=== PATIENT | male | born 1965 | race African-American/Black ===

== ENCOUNTER 2018-10-15 10:38 | Inpatient (IN) | payer SELFPAY ==
[~2018-10-15] VITALS: Ht 177.8 cm; Wt 91.4 kg
[~2018-10-15 10:38] MED LIST: AMLO-512 PO; CARV25 PO; CLON.2 PO; HYDR-2924 PO; LABE200T6 PO; NIFE90TA38 PO; PHOSLOC PO; SPIR25 PO
[2018-10-15 11:58] LABS: BASOPHILS % (AUTO) 0.4 % (0.0-2.0); EOSINOPHILS % (AUTO) 0.5 % (1.0-6.0); HEMOGLOBIN 11.5 g/dL (13.5-17.5); LYMPHOCYTES # (AUTO) 0.7 K/uL (1.0-4.8); LYMPHOCYTES % (AUTO) 4.8 % (22.0-44.0); MEAN CORPUSCULAR HEMOGLOBIN 27.3 pg (26.0-34.0); MEAN CORPUSCULAR HGB CONC 32.9 G/dL (31.0-37.0); MEAN CORPUSCULAR VOLUME 83 fL (80-100); MONOCYTES # (AUTO) 1.1 K/uL (0.1-1.0); MONOCYTES % (AUTO) 7.5 % (2.0-9.0); NEUTROPHILS # (AUTO) 12.1 K/uL (1.8-7.7); NEUTROPHILS % (AUTO) 86.8 % (40.0-70.0); PLATELET COUNT (AUTO) 349 K/uL (150-450); RED CELL DISTRIBUTION WIDTH 14.2 % (11.5-14.5)
[2018-10-15 12:07] LABS: CALCIUM, TOTAL 9.7 mg/dL (8.8-10.5); CREATININE 4.42 mg/dL (0.60-1.30)
[2018-10-15 12:08] LABS: PROTHROMBIN TIME 10.8 SEC (9.4-11.6)
[2018-10-15 12:12] LABS: BILIRUBIN,TOTAL 0.3 mg/dL (0.1-1.0); TOTAL PROTEIN, SERUM 8.6 g/dL (6.4-8.2)
[2018-10-15 12:16] LABS: APPEARANCE,URINE CLOUDY (CLEAR); BILIRUBIN,URINE NEGATIVE (NEGATIVE); GLUCOSE, URINE (UA) NEGATIVE (NEGATIVE); KETONES,URINE NEGATIVE (NEGATIVE); LEUKOCYTE ESTERASE ,URINE MODERATE (NEGATIVE); NITRATE,URINE POSITIVE (NEGATIVE); OCCULT BLOOD,URINE NEGATIVE (NEGATIVE); PROTEIN,URINE SEE CONFIRM (NEGATIVE); UROBILINOGEN,URINE 0.2 mg/dL (<=1.0)
[2018-10-15] MEDS ORDERED: CefTRIAXone 1 GM/DEXTROSE 50 ML IV ONE (12:30)
[2018-10-15] MEDS ORDERED: SODIUM CHLORIDE 0.9% 1,000 ML IV ONE ×2 (12:30→13:15)
[2018-10-15 12:31] LABS: BACTERIA,URINE Many /HPF (None Seen); RBC,URINE 0-2 /HPF (0-2); SULFOSALICYLIC ACID,URINE 2+ (Negative); WBC,URINE 26-50 /HPF (0-5)
[2018-10-15 12:32] LABS: AMPHET/METH SCREEN,URINE NEGATIVE (NEGATIVE); BARBITURATE SCREEN, URINE NEGATIVE (NEGATIVE); BENZODIAZEPINES SCREEN,URINE NEGATIVE (NEGATIVE); CANNABINOID SCREEN,URINE NEGATIVE (NEGATIVE); COCAINE SCREEN,URINE NEGATIVE (NEGATIVE); METHADONE SCREEN, URINE NEGATIVE (NEGATIVE); OPIATE SCREEN,URINE NEGATIVE (NEGATIVE); PHENCYCLIDINE SCREEN,URINE NEGATIVE (NEGATIVE)
[2018-10-15] MEDS ORDERED: ACETAMINOPHEN 325 MG TABLET PO PRN ×2 (14:30→21:30)
[2018-10-15] MEDS ORDERED: 0.9% SODIUM CHLORIDE 10 ML SYRINGE IVP PRN (14:30)
[2018-10-15 15:15] VITALS: BP 160/96
[2018-10-15 19:00] VITALS: BP 132/97
[2018-10-15] MEDS ORDERED: -PHARMACY VACCINE NOTE- MISC ONE (19:45)
[2018-10-15] MEDS ORDERED: SODIUM CHLORIDE 0.45% 1,000 ML IV SCH (21:30)
[2018-10-15] MEDS ORDERED: HYDROCODONE/ACETAMINOPHEN 5-325 MG TABLET PO PRN (21:30)
[2018-10-15] MEDS ORDERED: OxyCODONE HCL/ACETAMINOPHEN 5-325 MG TABLET PO PRN (21:30)
[2018-10-15] MEDS: PIPERACILLIN/TAZO 3.375 GM/D5W 50 ML IV SCH (22:17)
[2018-10-15 23:48] VITALS: BP 160/97
[2018-10-16 04:00] VITALS: BP 143/92
[2018-10-16] MEDS: PIPERACILLIN/TAZO 3.375 GM/D5W 50 ML IV SCH ×3 (06:08→21:36)
[2018-10-16 06:34] LABS: BASOPHILS % (AUTO) 0.2 % (0.0-2.0); EOSINOPHILS % (AUTO) 1.4 % (1.0-6.0); HEMATOCRIT 32.4 % (41-53); HEMOGLOBIN 11.2 g/dL (13.5-17.5); LYMPHOCYTES # (AUTO) 0.9 K/uL (1.0-4.8); LYMPHOCYTES % (AUTO) 8.7 % (22.0-44.0); MEAN CORPUSCULAR HEMOGLOBIN 28.1 pg (26.0-34.0); MEAN CORPUSCULAR HGB CONC 34.4 G/dL (31.0-37.0); MEAN CORPUSCULAR VOLUME 82 fL (80-100); MONOCYTES # (AUTO) 1.2 K/uL (0.1-1.0); MONOCYTES % (AUTO) 11.5 % (2.0-9.0); NEUTROPHILS % (AUTO) 78.2 % (40.0-70.0); PLATELET COUNT (AUTO) 351 K/uL (150-450); RED BLOOD CELL COUNT(AUTO) 3.97 MIL/uL (4.50-5.90); RED CELL DISTRIBUTION WIDTH 14.2 % (11.5-14.5)
[2018-10-16 06:46] LABS: ALBUMIN 2.8 g/dL (3.4-5.0); BILIRUBIN,TOTAL 0.3 mg/dL (0.1-1.0); CHOL/HDL RATIO 5.6 (4.2-7.3); CREATININE 3.88 mg/dL (0.60-1.30); MAGNESIUM 2.3 mg/dL (1.80-2.40); POTASSIUM 4.8 mmol/L (3.5-5.1); TOTAL PROTEIN, SERUM 7.8 g/dL (6.4-8.2)
[2018-10-16 07:20] VITALS: BP 155/103
[2018-10-16 07:32] LABS: PHOSPHORUS 4.4 mg/dL (2.5-4.9); THYROID STIMULATING HORMONE 1.67 uIU/mL (0.36-3.74)
[2018-10-16] MEDS: AmLODIPine BESYLATE 10 MG TABLET PO SCH (08:16)
[2018-10-16] MEDS: HydrALAZINE HCL 50 MG TABLET PO SCH ×3 (08:16→19:54)
[2018-10-16] MEDS: CloNIDine HCL 0.2 MG TABLET PO SCH ×3 (08:16→19:54)
[2018-10-16] MEDS: NIFEdipine 90 MG ER TABLET PO SCH (08:16)
[2018-10-16] MEDS: CARVEDILOL 25 MG TABLET PO SCH ×2 (08:16→19:54)
[2018-10-16] MEDS: LABETALOL HCL 200 MG TABLET PO SCH ×2 (08:16→21:36)
[2018-10-16] MEDS: FAMOTIDINE 20 MG TABLET PO SCH (08:17)
[2018-10-16] MEDS: CALCIUM ACETATE 667 MG CAPSULE PO SCH ×2 (08:17→12:25)
[2018-10-16 11:40] VITALS: BP 128/83
[2018-10-16 15:00] VITALS: BP 125/95
[2018-10-16 19:26] VITALS: BP 136/81
[2018-10-16 20:06] LABS: CREATININE,URINE RANDOM 56.1 mg/dL (30.0-125.0)
[2018-10-16] MEDS ORDERED: SODIUM CHLORIDE 0.9% 250 ML IV ONE (23:05)
[2018-10-16 23:39] VITALS: BP 133/88
[2018-10-17 04:11] VITALS: BP 136/76
[2018-10-17] MEDS: PIPERACILLIN/TAZO 3.375 GM/D5W 50 ML IV SCH ×3 (05:43→21:05)
[2018-10-17 06:34] LABS: BASOPHILS % (AUTO) 0.4 % (0.0-2.0); EOSINOPHILS % (AUTO) 1.6 % (1.0-6.0); HEMATOCRIT 33.3 % (41-53); LYMPHOCYTES # (AUTO) 0.8 K/uL (1.0-4.8); LYMPHOCYTES % (AUTO) 8.1 % (22.0-44.0); MEAN CORPUSCULAR HEMOGLOBIN 27.6 pg (26.0-34.0); MEAN CORPUSCULAR HGB CONC 33.2 G/dL (31.0-37.0); MEAN CORPUSCULAR VOLUME 83 fL (80-100); MONOCYTES # (AUTO) 1.2 K/uL (0.1-1.0); MONOCYTES % (AUTO) 11.6 % (2.0-9.0); NEUTROPHILS # (AUTO) 8.2 K/uL (1.8-7.7); NEUTROPHILS % (AUTO) 78.3 % (40.0-70.0); PLATELET COUNT (AUTO) 378 K/uL (150-450); RED CELL DISTRIBUTION WIDTH 14.4 % (11.5-14.5)
[2018-10-17 06:46] LABS: CALCIUM, TOTAL 9.1 mg/dL (8.8-10.5); CREATININE 3.76 mg/dL (0.60-1.30); POTASSIUM 5.2 mmol/L (3.5-5.1)
[2018-10-17 07:15] VITALS: BP 128/81
[2018-10-17 07:36] LABS: MAGNESIUM 2.4 mg/dL (1.80-2.40); PHOSPHORUS 4.1 mg/dL (2.5-4.9)
[2018-10-17] MEDS ORDERED: SODIUM POLYSTYRENE SULFONATE 15 GM/60 ML SUSPENSION BOTTLE PO ONE (10:00)
[2018-10-17] MEDS: FAMOTIDINE 20 MG TABLET PO SCH (10:09)
[2018-10-17] MEDS: CloNIDine HCL 0.2 MG TABLET PO SCH ×3 (10:09→20:34)
[2018-10-17] MEDS: NIFEdipine 90 MG ER TABLET PO SCH (10:09)
[2018-10-17] MEDS: CARVEDILOL 25 MG TABLET PO SCH ×2 (10:09→20:34)
[2018-10-17] MEDS: HydrALAZINE HCL 50 MG TABLET PO SCH ×3 (10:09→20:36)
[2018-10-17] MEDS: LABETALOL HCL 200 MG TABLET PO SCH ×2 (10:09→20:34)
[2018-10-17] MEDS: AmLODIPine BESYLATE 10 MG TABLET PO SCH (10:09)
[2018-10-17 11:27] VITALS: BP 136/77
[2018-10-17 15:48] VITALS: BP 133/91
[2018-10-17 20:01] VITALS: BP 136/82
[2018-10-17 23:12] VITALS: BP 126/78
[2018-10-18 04:00] VITALS: BP 142/82
[2018-10-18] MEDS: PIPERACILLIN/TAZO 3.375 GM/D5W 50 ML IV SCH ×2 (05:28→14:13)
[2018-10-18 06:37] LABS: BASOPHILS % (AUTO) 0.4 % (0.0-2.0); EOSINOPHILS % (AUTO) 2.8 % (1.0-6.0); HEMATOCRIT 32.6 % (41-53); HEMOGLOBIN 10.9 g/dL (13.5-17.5); LYMPHOCYTES % (AUTO) 11.9 % (22.0-44.0); MEAN CORPUSCULAR HEMOGLOBIN 28.1 pg (26.0-34.0); MEAN CORPUSCULAR HGB CONC 33.5 G/dL (31.0-37.0); MEAN CORPUSCULAR VOLUME 84 fL (80-100); MONOCYTES # (AUTO) 0.9 K/uL (0.1-1.0); MONOCYTES % (AUTO) 10.3 % (2.0-9.0); NEUTROPHILS # (AUTO) 6.5 K/uL (1.8-7.7); NEUTROPHILS % (AUTO) 74.6 % (40.0-70.0); PLATELET COUNT (AUTO) 407 K/uL (150-450); RED BLOOD CELL COUNT(AUTO) 3.88 MIL/uL (4.50-5.90); RED CELL DISTRIBUTION WIDTH 14.4 % (11.5-14.5)
[2018-10-18 06:57] LABS: CALCIUM, TOTAL 9.4 mg/dL (8.8-10.5); CREATININE 3.98 mg/dL (0.60-1.30); MAGNESIUM 2.5 mg/dL (1.80-2.40); PHOSPHORUS 5.4 mg/dL (2.5-4.9); POTASSIUM 4.4 mmol/L (3.5-5.1)
[2018-10-18 08:27] VITALS: BP 134/76
[2018-10-18] MEDS: LABETALOL HCL 200 MG TABLET PO SCH (08:38)
[2018-10-18] MEDS: HydrALAZINE HCL 50 MG TABLET PO SCH (08:38)
[2018-10-18] MEDS: FAMOTIDINE 20 MG TABLET PO SCH (08:38)
[2018-10-18] MEDS: NIFEdipine 90 MG ER TABLET PO SCH (08:39)
[2018-10-18] MEDS: AmLODIPine BESYLATE 10 MG TABLET PO SCH (08:39)
[2018-10-18] MEDS: CloNIDine HCL 0.2 MG TABLET PO SCH (08:39)
[2018-10-18] MEDS: CARVEDILOL 25 MG TABLET PO SCH (08:39)
[2018-10-18 11:36] VITALS: BP 127/80
[2018-10-18] MEDS ORDERED: CIPR500S5 PO (14:37)
[2018-10-18 15:10] VITALS: BP 133/86
== END 2018-10-18 15:35 | disposition home or self-care (01) | DRG 727 ==
LOC: EMS 10:39 → 5N 14:43
PROVIDERS: ADMIT Internal Medicine; ATTEND Internal Medicine
DX: N45.3 Epididymo-orchitis (principal); N17.1 Acute kidney failure with acute cortical necrosis; R65.10 Systemic inflammatory response syndrome (SIRS) of non-infectious origin without acute organ dysfunction; N18.4 Chronic kidney disease, stage 4 (severe); N39.0 Urinary tract infection, site not specified; I16.1 Hypertensive emergency; I12.9 Hypertensive chronic kidney disease with stage 1 through stage 4 chronic kidney disease, or unspecified chronic kidney disease; E87.5 Hyperkalemia; D72.829 Elevated white blood cell count, unspecified; D63.1 Anemia in chronic kidney disease; R74.0 Nonspecific elevation of levels of transaminase and lactic acid dehydrogenase [LDH]; R80.9 Proteinuria, unspecified; N40.0 Benign prostatic hyperplasia without lower urinary tract symptoms; N50.89 Other specified disorders of the male genital organs; Z82.49 Family history of ischemic heart disease and other diseases of the circulatory system
CPT/HCPCS: 76770; 76870; 82570; 83735; 84100; 84156; 84300; 84443; 84540; 87086; 96365; G0378; J0696; J2543; J7030; J7050

== ENCOUNTER 2019-04-07 10:10 | Inpatient (IN) | payer MEDICAID, OTHER ==
[~2019-04-07] VITALS: Ht 177.8 cm; Wt 90.7 kg
[~2019-04-07 10:10] MED LIST changes: -AMLO-512 PO; +AMLO10TA7 PO; +CIPR500S5 PO
[2019-04-07] MEDS ORDERED: HydrALAZINE HCL 20 MG/ML VIAL IVP ONE (11:15)
[2019-04-07 11:24] LABS: BASOPHILS % (AUTO) 0.6 % (0.0-2.0); HEMOGLOBIN 11.8 g/dL (13.5-17.5); MONOCYTES # (AUTO) 0.5 K/uL (0.1-1.0)
[2019-04-07 11:27] LABS: EOSINOPHILS % (AUTO) 1.9 % (1.0-6.0); LYMPHOCYTES # (AUTO) 0.5 K/uL (1.0-4.8); LYMPHOCYTES % (AUTO) 8.2 % (22.0-44.0); MEAN CORPUSCULAR HEMOGLOBIN 27.3 pg (26.0-34.0); MEAN CORPUSCULAR HGB CONC 33.6 G/dL (31.0-37.0); MEAN CORPUSCULAR VOLUME 81 fL (80-100); MONOCYTES % (AUTO) 8.9 % (2.0-9.0); NEUTROPHILS # (AUTO) 4.8 K/uL (1.8-7.7); NEUTROPHILS % (AUTO) 80.4 % (40.0-70.0); PLATELET COUNT (AUTO) 176 K/uL (150-450); RED BLOOD CELL COUNT(AUTO) 4.31 MIL/uL (4.50-5.90); RED CELL DISTRIBUTION WIDTH 15.3 % (11.5-14.5)
[2019-04-07 11:46] LABS: ALBUMIN 3.1 g/dL (3.4-5.0); BILIRUBIN,TOTAL 0.6 mg/dL (0.1-1.0); CALCIUM, TOTAL 9.2 mg/dL (8.8-10.5); CREATININE 12.91 mg/dL (0.60-1.30); TOTAL PROTEIN, SERUM 7.5 g/dL (6.4-8.2)
[2019-04-07 11:47] LABS: POTASSIUM 2.6 mmol/L (3.5-5.1)
[2019-04-07] MEDS ORDERED: ASPIRIN 325 MG TABLET PO ONE (12:00)
[2019-04-07] MEDS ORDERED: POTASSIUM CHL 10 MEQ/WATER 50 ML IV PRN (12:00)
[2019-04-07] MEDS ORDERED: POTASSIUM CHLORIDE 20 MEQ ER TABLET PO PRN (12:00)
[2019-04-07] MEDS ORDERED: FUROSEMIDE 40 MG/4 ML VIAL IVP ONE (12:30)
[2019-04-07] MEDS ORDERED: ESMOLOL HCL 2500 MG/NACL 250 ML IV PRN ×2 (12:45→16:12)
[2019-04-07] MEDS ORDERED: ACETAMINOPHEN 325 MG TABLET PO PRN ×2 (13:30→13:45)
[2019-04-07] MEDS ORDERED: 0.9% SODIUM CHLORIDE 10 ML SYRINGE IVP PRN (13:30)
[2019-04-07] MEDS ORDERED: ONDANSETRON HCL 4 MG/2 ML VIAL IVP PRN (13:30)
[2019-04-07] MEDS ORDERED: BISACODYL 10 MG RECTAL RECTAL SUPPOSITORY PR PRN (13:45)
[2019-04-07] MEDS ORDERED: NIFEdipine 90 MG ER TABLET PO ONE (14:30)
[2019-04-07] MEDS ORDERED: SPIRONOLACTONE 25 MG TABLET PO ONE (14:30)
[2019-04-07] MEDS ORDERED: CARVEDILOL 25 MG TABLET PO ONE (14:30)
[2019-04-07 16:00] VITALS: BP 185/124
[2019-04-07] MEDS: VITAMIN B COMP/VIT C/FOLIC ACID CAPSULE PO SCH (17:57)
[2019-04-07] MEDS: ESMOLOL HCL 2500 MG/NACL 250 ML IV PRN (18:04)
[2019-04-07] MEDS: POTASSIUM CHL 10 MEQ/WATER 50 ML IV SCH ×2 (19:59→20:33)
[2019-04-07 20:00] VITALS: BP 163/107
[2019-04-07] MEDS: DOCUSATE SODIUM 100 MG CAPSULE PO SCH (21:16)
[2019-04-08] VITALS (7 sets, daily range): BP systolic 123–170; BP diastolic 70–111
[2019-04-08] MEDS: ESMOLOL HCL 2500 MG/NACL 250 ML IV PRN (00:38)
[2019-04-08 04:43] LABS: BASOPHILS % (AUTO) 0.4 % (0.0-2.0); EOSINOPHILS % (AUTO) 0.5 % (1.0-6.0); HEMATOCRIT 28.6 % (41-53); HEMOGLOBIN 9.9 g/dL (13.5-17.5); LYMPHOCYTES # (AUTO) 0.7 K/uL (1.0-4.8); LYMPHOCYTES % (AUTO) 12.6 % (22.0-44.0); MEAN CORPUSCULAR HEMOGLOBIN 27.7 pg (26.0-34.0); MEAN CORPUSCULAR HGB CONC 34.6 G/dL (31.0-37.0); MEAN CORPUSCULAR VOLUME 80 fL (80-100); MONOCYTES # (AUTO) 0.6 K/uL (0.1-1.0); MONOCYTES % (AUTO) 11.2 % (2.0-9.0); NEUTROPHILS # (AUTO) 4.3 K/uL (1.8-7.7); NEUTROPHILS % (AUTO) 75.3 % (40.0-70.0); PLATELET COUNT (AUTO) 162 K/uL (150-450); RED BLOOD CELL COUNT(AUTO) 3.58 MIL/uL (4.50-5.90); RED CELL DISTRIBUTION WIDTH 15.6 % (11.5-14.5)
[2019-04-08 05:05] LABS: MAGNESIUM 1.9 mg/dL (1.80-2.40); PHOSPHORUS 3.6 mg/dL (2.5-4.9)
[2019-04-08 06:01] LABS: CALCIUM, TOTAL 8.4 mg/dL (8.8-10.5); CREATININE 9.75 mg/dL (0.60-1.30)
[2019-04-08 06:04] LABS: POTASSIUM 2.8 mmol/L (3.5-5.1)
[2019-04-08] MEDS: POTASSIUM CHL 10 MEQ/WATER 50 ML IV SCH ×2 (08:15→09:05)
[2019-04-08] MEDS: DOCUSATE SODIUM 100 MG CAPSULE PO SCH ×2 (09:00→21:23)
[2019-04-08] MEDS ORDERED: AmLODIPine BESYLATE 10 MG TABLET PO SCH (09:00)
[2019-04-08] MEDS: VITAMIN B COMP/VIT C/FOLIC ACID CAPSULE PO SCH ×2 (09:00→11:19)
[2019-04-08] MEDS: HydrALAZINE HCL 50 MG TABLET PO SCH ×3 (09:52→21:22)
[2019-04-08] MEDS: CARVEDILOL 25 MG TABLET PO SCH ×2 (09:52→21:23)
[2019-04-08] MEDS: NIFEdipine 90 MG ER TABLET PO SCH (11:20)
[2019-04-08] MEDS: SPIRONOLACTONE 25 MG TABLET PO SCH (11:20)
[2019-04-08 13:00] LABS: HEMOGLOBIN A1C 5.5 % (4.5-6.2)
[2019-04-08] MEDS: ENALAPRIL MALEATE 10 MG TABLET PO SCH (13:04)
[2019-04-08] MEDS ORDERED: POTASSIUM CHLORIDE 20 MEQ ER TABLET PO ONE (14:30)
[2019-04-09] VITALS (7 sets, daily range): BP systolic 125–135; BP diastolic 66–80
[2019-04-09 06:53] LABS: BASOPHILS % (AUTO) 0.4 % (0.0-2.0); EOSINOPHILS % (AUTO) 2.8 % (1.0-6.0); HEMATOCRIT 28.9 % (41-53); HEMOGLOBIN 10.1 g/dL (13.5-17.5); LYMPHOCYTES # (AUTO) 0.9 K/uL (1.0-4.8); LYMPHOCYTES % (AUTO) 17.2 % (22.0-44.0); MEAN CORPUSCULAR HEMOGLOBIN 28.3 pg (26.0-34.0); MEAN CORPUSCULAR HGB CONC 34.8 G/dL (31.0-37.0); MEAN CORPUSCULAR VOLUME 81 fL (80-100); MONOCYTES # (AUTO) 0.6 K/uL (0.1-1.0); MONOCYTES % (AUTO) 10.3 % (2.0-9.0); NEUTROPHILS # (AUTO) 3.7 K/uL (1.8-7.7); NEUTROPHILS % (AUTO) 69.3 % (40.0-70.0); PLATELET COUNT (AUTO) 183 K/uL (150-450); RED BLOOD CELL COUNT(AUTO) 3.55 MIL/uL (4.50-5.90); RED CELL DISTRIBUTION WIDTH 15.9 % (11.5-14.5)
[2019-04-09 06:59] LABS: CALCIUM, TOTAL 8.1 mg/dL (8.8-10.5); CREATININE 8.76 mg/dL (0.60-1.30); MAGNESIUM 1.7 mg/dL (1.80-2.40); PHOSPHORUS 3.1 mg/dL (2.5-4.9)
[2019-04-09 07:01] LABS: % IRON SATURATION 21.6 % (30-44)
[2019-04-09] MEDS: VITAMIN B COMP/VIT C/FOLIC ACID CAPSULE PO SCH ×2 (09:00→09:11)
[2019-04-09] MEDS: NIFEdipine 90 MG ER TABLET PO SCH (09:00)
[2019-04-09] MEDS: ENALAPRIL MALEATE 10 MG TABLET PO SCH (09:00)
[2019-04-09] MEDS: HydrALAZINE HCL 50 MG TABLET PO SCH (09:11)
[2019-04-09] MEDS: CARVEDILOL 25 MG TABLET PO SCH ×2 (09:11→20:45)
[2019-04-09] MEDS: SPIRONOLACTONE 25 MG TABLET PO SCH (09:11)
[2019-04-09] MEDS: DOCUSATE SODIUM 100 MG CAPSULE PO SCH ×2 (09:11→20:45)
[2019-04-09] MEDS ORDERED: POTASSIUM CHLORIDE 20 MEQ ER TABLET PO ONE (09:30)
[2019-04-10 00:35] VITALS: BP 125/77
[2019-04-10 05:06] VITALS: BP 132/77
[2019-04-10 08:22] VITALS: BP 157/92
[2019-04-10] MEDS: DOCUSATE SODIUM 100 MG CAPSULE PO SCH ×2 (09:15→20:15)
[2019-04-10] MEDS: VITAMIN B COMP/VIT C/FOLIC ACID CAPSULE PO SCH (09:15)
[2019-04-10] MEDS: CARVEDILOL 25 MG TABLET PO SCH ×2 (09:16→20:16)
[2019-04-10] MEDS: NIFEdipine 90 MG ER TABLET PO SCH (09:16)
[2019-04-10] MEDS: ENALAPRIL MALEATE 10 MG TABLET PO SCH (09:16)
[2019-04-10 09:33] LABS: BASOPHILS % (AUTO) 0.5 % (0.0-2.0); EOSINOPHILS % (AUTO) 4.7 % (1.0-6.0); HEMATOCRIT 35.1 % (41-53); HEMOGLOBIN 11.8 g/dL (13.5-17.5); LYMPHOCYTES % (AUTO) 17.8 % (22.0-44.0); MEAN CORPUSCULAR HEMOGLOBIN 27.5 pg (26.0-34.0); MEAN CORPUSCULAR HGB CONC 33.7 G/dL (31.0-37.0); MEAN CORPUSCULAR VOLUME 82 fL (80-100); MONOCYTES # (AUTO) 0.5 K/uL (0.1-1.0); MONOCYTES % (AUTO) 8.5 % (2.0-9.0); NEUTROPHILS # (AUTO) 3.7 K/uL (1.8-7.7); NEUTROPHILS % (AUTO) 68.5 % (40.0-70.0); PLATELET COUNT (AUTO) 234 K/uL (150-450)
[2019-04-10 09:46] LABS: CALCIUM, TOTAL 8.2 mg/dL (8.8-10.5); MAGNESIUM 1.9 mg/dL (1.80-2.40)
[2019-04-10 09:50] LABS: POTASSIUM 2.8 mmol/L (3.5-5.1)
[2019-04-10] MEDS ORDERED: POTASSIUM CHL 10 MEQ/WATER 50 ML IV ONE (10:00)
[2019-04-10] MEDS ORDERED: SODIUM CHLORIDE 0.9% 2,000 ML IV ONE (10:08)
[2019-04-10] MEDS ORDERED: SODIUM CHLORIDE 0.9% 100 ML ONE (10:08)
[2019-04-10] MEDS: POTASSIUM CHL 10 MEQ/WATER 50 ML IV SCH ×2 (10:15→11:15)
[2019-04-10 11:49] VITALS: BP 131/88
[2019-04-10 15:26] VITALS: BP 157/102
[2019-04-10 20:33] VITALS: BP 152/98
[2019-04-10] MEDS ORDERED: ENALAPRIL MALEATE 10 MG TABLET PO SCH (21:00)
[2019-04-11 00:16] VITALS: BP 128/76
[2019-04-11 04:58] VITALS: BP 133/85
[2019-04-11 08:05] LABS: CALCIUM, TOTAL 8.1 mg/dL (8.8-10.5); CREATININE 7.89 mg/dL (0.60-1.30); POTASSIUM 3.2 mmol/L (3.5-5.1)
[2019-04-11] MEDS: VITAMIN B COMP/VIT C/FOLIC ACID CAPSULE PO SCH (08:22)
[2019-04-11] MEDS: DOCUSATE SODIUM 100 MG CAPSULE PO SCH ×2 (08:23→20:09)
[2019-04-11] MEDS: CARVEDILOL 25 MG TABLET PO SCH ×2 (08:23→20:09)
[2019-04-11] MEDS ORDERED: POTASSIUM CHLORIDE 10 MEQ ER TABLET PO ONE (08:30)
[2019-04-11] MEDS: ENALAPRIL MALEATE 20 MG TABLET PO SCH ×2 (09:00→20:09)
[2019-04-11] MEDS: NIFEdipine 60 MG ER TABLET PO SCH (09:00)
[2019-04-11 20:45] VITALS: BP 149/85
[2019-04-11 23:31] VITALS: BP 142/77
[2019-04-12 05:34] VITALS: BP 137/98
[2019-04-12 08:18] VITALS: BP 141/88
[2019-04-12] MEDS: DOCUSATE SODIUM 100 MG CAPSULE PO SCH ×2 (09:00→20:10)
[2019-04-12] MEDS: NIFEdipine 60 MG ER TABLET PO SCH (09:31)
[2019-04-12] MEDS: VITAMIN B COMP/VIT C/FOLIC ACID CAPSULE PO SCH (09:31)
[2019-04-12] MEDS: ENALAPRIL MALEATE 20 MG TABLET PO SCH ×2 (09:31→20:08)
[2019-04-12] MEDS: CARVEDILOL 25 MG TABLET PO SCH ×2 (11:14→20:08)
[2019-04-12 11:46] VITALS: BP 151/99
[2019-04-12 15:53] VITALS: BP 152/102
[2019-04-12] MEDS: HydrALAZINE HCL 50 MG TABLET PO SCH ×2 (16:27→20:08)
[2019-04-12 16:29] LABS: CALCIUM, TOTAL 8.1 mg/dL (8.8-10.5); CREATININE 10.26 mg/dL (0.60-1.30); POTASSIUM 3.6 mmol/L (3.5-5.1)
[2019-04-12 21:11] VITALS: BP 144/89
[2019-04-13 00:50] VITALS: BP 143/81
[2019-04-13 05:33] VITALS: BP 142/82
[2019-04-13 07:44] VITALS: BP 152/92
[2019-04-13] MEDS ORDERED: SODIUM CHLORIDE 0.9% 2,000 ML IV ONE (08:01)
[2019-04-13] MEDS: DOCUSATE SODIUM 100 MG CAPSULE PO SCH (09:00)
[2019-04-13 12:14] VITALS: BP 151/101
[2019-04-13] MEDS: VITAMIN B COMP/VIT C/FOLIC ACID CAPSULE PO SCH (12:58)
[2019-04-13] MEDS: CARVEDILOL 25 MG TABLET PO SCH (12:59)
[2019-04-13] MEDS: HydrALAZINE HCL 50 MG TABLET PO SCH ×2 (12:59→15:09)
[2019-04-13] MEDS: ENALAPRIL MALEATE 20 MG TABLET PO SCH (12:59)
[2019-04-13] MEDS: NIFEdipine 60 MG ER TABLET PO SCH (12:59)
[2019-04-13] MEDS ORDERED: NIFE60TA71 PO (14:04)
[2019-04-13] MEDS ORDERED: B CO1CAP6 PO (14:04)
[2019-04-13] MEDS ORDERED: ENAL20 PO (14:05)
== END 2019-04-13 15:35 | disposition home or self-care (01) | DRG 199 ==
LOC: EMS 10:12 → ICU 15:58 → 5S 04-08 17:10
PROVIDERS: ADMIT Internal Medicine; ATTEND Internal Medicine
PROC: 5A1D70Z Performance of Urinary Filtration, Intermittent, Less than 6 Hours Per Day (ICD-10-PCS; principal; 2019-04-07)
PROC: 5A1D70Z Performance of Urinary Filtration, Intermittent, Less than 6 Hours Per Day (ICD-10-PCS; 2019-04-08)
PROC: 5A1D70Z Performance of Urinary Filtration, Intermittent, Less than 6 Hours Per Day (ICD-10-PCS; 2019-04-10)
PROC: 5A1D70Z Performance of Urinary Filtration, Intermittent, Less than 6 Hours Per Day (ICD-10-PCS; 2019-04-13)
DX: I16.1 Hypertensive emergency (principal); N17.1 Acute kidney failure with acute cortical necrosis; I24.8 Other forms of acute ischemic heart disease; I50.9 Heart failure, unspecified; N18.6 End stage renal disease; I13.2 Hypertensive heart and chronic kidney disease with heart failure and with stage 5 chronic kidney disease, or end stage renal disease; E87.6 Hypokalemia; E26.9 Hyperaldosteronism, unspecified; D63.8 Anemia in other chronic diseases classified elsewhere; Z91.14 Patient's other noncompliance with medication regimen; Z79.899 Other long term (current) drug therapy; Z82.49 Family history of ischemic heart disease and other diseases of the circulatory system
CPT/HCPCS: 83036; 83540; 83550; 83735; 84100; 84132; 87081; 87340; 93005; 93306; 99291; G0378; J0360; J1940; J3480; J7030; J7050